=== PATIENT | male | born 1960 | race Caucasian/White ===

== ENCOUNTER 2019-01-13 09:16 | Day surgery (SDC) | payer MEDICAID ==
[2019-01-11 15:24] VITALS: BMI 27.1
[~2019-01-13 09:16] MED LIST: LACTATED RINGERS 1,000 ML IV SCH; LIDOCAINE 1% 20 ML VIAL (10MG/ML) FOR IV START INTRADERMA PRN
[2019-01-13 09:56] VITALS: RESP 16; TEMP 97.6
[2019-01-13] MEDS ORDERED: LIDOCAINE 1% INJ 10MG/ML (20 ML MDV) ONE (10:54)
[2019-01-13] MEDS ORDERED: PROPOFOL 10 MG/ML 20 ML VIAL IV ONE (10:54)
--- NOTE | 2019-01-13 11:10 | P.PCN ---
Date of Procedure: 01/13/19 Procedure(s) Performed: BRIEF HISTORY: Patient is a 58-year-old pleasant male, scheduled for an elective colonoscopy as a part of screening for colorectal neoplasia. PROCEDURE PERFORMED: Colonoscopy. PREOPERATIVE DIAGNOSIS: Screening for colon cancer. IV sedation per Anesthesia. PROCEDURE: After informed consent was obtained, the patient, was brought into the endoscopy unit. IV sedation was administered by Anesthesia under continuous monitoring. Digital rectal examination was normal. Initially the Olympus CF-160 flexible video colonoscope was then inserted in the rectum, gradually advanced into the cecum without any difficulty. Careful examination was performed as the scope was gradually being withdrawn. Ileocecal valve and the appendiceal orifice were visualized and appeared normal. Prep was excellent. Mucosa of the cecum, ascending colon, transverse colon, descending colon, sigmoid colon, and rectum appeared normal. Retroflexion was performed in the rectum and no lesions were seen. The patient tolerated the procedure well. IMPRESSION: Normal-appearing colon from rectum to cecum with no evidence of colorectal neoplasia . RECOMMENDATIONS: Findings of this examination were discussed with the patient as well as his family. He was advised to have a repeat screening colonoscopy in 10 years.
[2019-01-13 11:39] VITALS: BP 115/81; PULSE 57
== END 2019-01-13 11:41 | disposition home or self-care (01) ==
LOC: ORWHC2ENDO 09:16
PROVIDERS: ATTEND Internal Medicine Gastroenterology
DX: Z12.11 Encounter for screening for malignant neoplasm of colon (principal); I10 Essential (primary) hypertension; E78.5 Hyperlipidemia, unspecified; Z79.899 Other long term (current) drug therapy
CPT/HCPCS: J2001; J2704; G0121

== ENCOUNTER → 2019-05-24 | Outpatient (CLI) | payer MEDICAID ==
--- NOTE | 2019-05-24 14:28 | XR ---
Bilateral hands HISTORY: Polyarthritis 3 views of each hand submitted. No comparisons There is hypertrophic change present at the carpometacarpal joint of the first digit, small ossific d ensity present at this level lateral to the trapezium is well-corticated and not felt likely to be ac [place] of the left hand. Some subchondral sclerosis also present at the carpometacarpal joint of the fir st digit of the right hand. Some remodeling present at the radiocarpal joints. Joint space loss is pr esent at the metacarpal phalangeal joints of the first, second, third digits bilaterally with some ma rginal spurring, some hypertrophic change present at the distal interphalangeal joints of the third d igit of the left hand, second and third digit right hand. Question some chondrocalcinosis at the inte rphalangeal joint of the first digit, third digit proximal interphalangeal joint of the right hand, p roximal interphalangeal joint of the third digit of the left hand. Some hooklike osteophytes present at the distal third metacarpal of the left hand, second and third metacarpals of the right hand. 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
== END | disposition home or self-care (01) ==
LOC: RADXRMAIN 09:51
PROVIDERS: ATTEND Internal Medicine
DX: M13.0 Polyarthritis, unspecified (principal)

== ENCOUNTER → 2020-08-29 | Outpatient (CLI) | payer MEDICAID ==
--- NOTE | 2020-08-29 09:39 | XR ---
EXAMINATION TYPE: XR chest 2V DATE OF EXAM: 08/29/2020 COMPARISON: NONE HISTORY: Clubbing of fingers, checkup TECHNIQUE: Frontal and lateral views of the chest are obtained. FINDINGS: There is no focal air space opacity, pleural effusion, or pneumothorax seen. The cardiac silhouette size is within normal limits. The osseous structures are intact, there is thoracic spond ylosis. IMPRESSION: No acute cardiopulmonary process.
[2020-08-29 13:46] LABS: C Reactive Protein <0.4 mg/dL (0.0-0.8); Rheumatoid Factor, Qnt 16 IU/mL (0-15)
[2020-08-29 14:31] LABS: Creatine Kinase 442 U/L (35-257)
[2020-08-29 19:58] LABS: Cyclic Citrull Pep IgG Unit <0.5 U/mL; Cyclic Citrullinated Pep IgG NEGATIVE (NEGATIVE)
[2020-08-30 13:30] LABS: Angiotensin-1 Converting Enz. 25 U/L (8-52)
[2020-08-30 14:26] LABS: HLA B27 NEGATIVE
== END | disposition home or self-care (01) ==
LOC: LABWHC1 07:11
PROVIDERS: ATTEND Internal Medicine Rheumatology
DX: M13.0 Polyarthritis, unspecified (principal)
CPT/HCPCS: 36415; 71046; 82164; 82306; 82550; 83520; 84439; 84443; 85652; 86038; 86140; 86200; 86431; 86812

== ENCOUNTER → 2020-11-30 | Outpatient (CLI) | payer MEDICAID ==
[2020-11-30 15:10] LABS: HGB 14.6 g/dL (13.0-17.0); MCH 31.9 pg (27.0-32.0); MCHC 31.7 g/dL (32.0-37.0); MCV 100.4 fL (80.0-97.0); Mean Platelet Volume 10.3 fL (9.5-12.2); Platelet Count 206 X 10*3/uL (140-440); RBC 4.58 X 10*6/uL (4.40-5.60); RDW 13.3 % (11.5-14.5); WBC 5.79 X 10*3/uL (4.50-10.00)
[2020-11-30 17:59] LABS: Cardiolipin Ab IgG Interp NEGATIVE (NEGATIVE); Cardiolipin Ab IgM Interp NEGATIVE (NEGATIVE); Cardiolipin IgA Antibody <2.0 U/mL; Cardiolipin IgM Antibody <1.5 U/mL; Cyclic Citrull Pep IgG Unit <0.5 U/mL; Cyclic Citrullinated Pep IgG NEGATIVE (NEGATIVE)
[2020-12-01 04:35] LABS: Hepatitis A Antibody IgM Non-Reactive (Non-Reactive); Hepatitis B Core IgM Non-Reactive (Non-Reactive); Hepatitis B Surface Antigen Non-Reactive (Non-Reactive); Hepatitis C IgG Antibody Non-Reactive (Non-Reactive)
[2020-12-01 06:13] LABS: Protein, Total 5.8 g/dL (6.2-8.2)
[2020-12-01 06:40] LABS: African American GFR (CKD) 106.5 (60.0-200.0); Albumin 4.2 g/dL (3.80-4.90); Anion Gap 12.1 mmol/L (4.00-12.00); BUN/Creat Ratio 17.78 Ratio (12.00-20.00); Calcium 9.4 mg/dL (8.7-10.3); Carbon Dioxide 22.9 mmol/L (21.6-31.8); Chol/HDL Ratio 2.83; Globulin 2.1 g/dL (1.6-3.3); LDL Cholesterol,Calculated 97.2 mg/dL (0.0-131.0); Non-African American GFR(CKD) 91.9 (60.0-200.0); Total Bilirubin 0.4 mg/dL (0.3-1.2); Total Protein 6.3 g/dL (6.2-8.2); Uric Acid 4.3 mg/dL (3.7-8.7); VLDL Calculation 17.8 mg/dL (5.00-40.00)
[2020-12-01 12:11] LABS: Aldolase 5.5 U/L (1.2-7.6)
[2020-12-01 14:01] LABS: APTT 37 Sec(s) (<43); Dilute Russell Viper Venom 39 Sec(s) (<44)
[2020-12-01 14:26] LABS: C-ANCA <1:20 Titer (<1:20)
[2020-12-04 13:54] LABS: Albumin 3.64 g/dL (3.80-4.90); Gamma Globulin 0.65 g/dL (0.70-1.50)
== END | disposition home or self-care (01) ==
LOC: LABWHC1 07:25
PROVIDERS: ATTEND Internal Medicine
DX: I10 Essential (primary) hypertension (principal); E78.2 Mixed hyperlipidemia; M77.9 Enthesopathy, unspecified; E79.0 Hyperuricemia without signs of inflammatory arthritis and tophaceous disease; M13.0 Polyarthritis, unspecified; L40.9 Psoriasis, unspecified
CPT/HCPCS: 36415; 80053; 80061; 80074; 82085; 82550; 83516; 83520; 84165; 84550; 85027; 85613; 85730; 86038; 86147; 86200; 86255

== ENCOUNTER → 2021-09-13 | Outpatient (CLI) | payer MEDICAID ==
--- NOTE | 2021-09-13 12:31 | XR ---
Left shoulder HISTORY: Pain 3 views of the left shoulder Acromioclavicular joint arthropathy is present. Distal acromion is downturned. Alignment and bone min eralization are maintained. Left lung apex as visualized is normal. There is no fracture or dislocati on. IMPRESSION: Acromioclavicular joint osteoarthritis, correlate for possible shoulder impingement, bebe jimeneser MRI may be of benefit
--- NOTE | 2021-09-13 12:40 | XR ---
Left hand HISTORY: Osteoarthritis, pain 3 views the left hand, correlation to prior exam 05/24/2019 There is no significant interval change. Bone mineralization, joint spaces and alignment show similar appearance. Hypertrophic changes are present at the distal third metacarpal, osteophyte is again see n. Metallic ring on the ring finger is present. Sclerosis and joint space loss, hypertrophic change p resent at the carpometacarpal joint of the first digit. Small ossific densities are again noted in th e periarticular location. Small ossific density present dorsal to the third proximal interphalangeal joint is unchanged. There is spurring at the distal interphalangeal joint of the third digit similar to prior exam. IMPRESSION: Stable findings. Osteoarthritis.
== END | disposition home or self-care (01) ==
LOC: RADXRMAIN 10:31
PROVIDERS: ATTEND Internal Medicine
DX: M19.042 Primary osteoarthritis, left hand (principal); M19.012 Primary osteoarthritis, left shoulder

== ENCOUNTER → 2022-03-08 | Outpatient (CLI) | payer MEDICAID ==
[2022-03-08 10:47] LABS: Basophils # (A) 0.02 X 10*3/uL (0.00-0.10); Basophils % (A) 0.4 %; Eosinophils # (A) 0.27 X 10*3/uL (0.04-0.35); Eosinophils % (A) 5.9 %; HCT 48.1 % (39.6-50.0); HGB 15.5 g/dL (13.0-17.0); Immature Grans, Automated 0.4 %; Lymphocytes % (A) 26.1 %; MCH 31.4 pg (27.0-32.0); MCHC 32.2 g/dL (32.0-37.0); MCV 97.4 fL (80.0-97.0); Monocytes # (A) 0.42 X 10*3/uL (0.20-1.00); Monocytes % (A) 9.2 %; NRBC Per 100 WBC 0 /100 WBCS (0.0-0.0); Neutrophils # (A) 2.66 X 10*3/uL (1.80-7.70); Platelet Count 199 X 10*3/uL (140-440); RBC 4.94 X 10*6/uL (4.40-5.60); RDW 12.9 % (11.5-14.5); WBC 4.59 X 10*3/uL (4.50-10.00)
[2022-03-08 10:57] LABS: Appearance,Urine Clear (Clear); Bilirubin,Urine Negative (Negative); Blood,Urine Negative (Negative); Color,Urine Yellow; Glucose,Urine (UA) Negative (Negative); Ketones,Urine Negative (Negative); Leukocyte Esterase,Urine Negative (Negative); Nitrite,Urine Negative (Negative); Protein,Urine Negative (Negative); Urobilinogen,Urine <2.0 mg/dL (<2.0)
[2022-03-08 12:28] LABS: ALT 31 U/L (10-49); AST 24 U/L (14-35); African American GFR (CKD) 89.8 (60.0-200.0); Albumin 4.5 g/dL (3.8-4.9); Albumin/Globulin Ratio 2.06 (1.60-3.17); Alkaline Phosphatase 90 U/L (41-126); BUN/Creat Ratio 16.41 Ratio (12.00-20.00); Blood Urea Nitrogen 16.9 mg/dL (9.0-27.0); Calcium 9.7 mg/dL (8.7-10.3); Carbon Dioxide 28.2 mmol/L (20.0-27.5); Chloride 104 mmol/L (96-109); Chol/HDL Ratio 2.87 Ratio; Globulin 2.2 g/dL (1.6-3.3); Glucose 104 mg/dL (70-110); LDL Cholesterol,Calculated 95.4 mg/dL (0.0-131.0); Magnesium 2.2 mg/dL (1.5-2.4); Non-African American GFR(CKD) 77.5 (60.0-200.0); Potassium 5.2 mmol/L (3.5-5.5); Sodium 142 mmol/L (135-145); Total Protein 6.6 g/dL (6.2-8.2)
== END | disposition home or self-care (01) ==
LOC: LABWHC1 07:13
PROVIDERS: ATTEND Internal Medicine
DX: I10 Essential (primary) hypertension (principal); E78.2 Mixed hyperlipidemia; N40.1 Benign prostatic hyperplasia with lower urinary tract symptoms; G47.33 Obstructive sleep apnea (adult) (pediatric)
CPT/HCPCS: 36415; 80053; 80061; 81003; 82306; 83036; 83735; 84153; 84439; 84443; 85025

== ENCOUNTER → 2022-04-08 | Outpatient (CLI) | payer MEDICAID ==
--- NOTE | 2022-04-08 14:02 | US ---
EXAMINATION TYPE: US carotid duplex BILAT DATE OF EXAM: 04/08/2022 COMPARISON: NONE CLINICAL HISTORY: I34.0 NONRHEUMATIC MITRAL (VALVE) INSUFFICIENCY. Prior smoker. Hx hypertension, hyp erlipidemia, carotid stenosis per order. TECHNIQUE: Carotid duplex ultrasound examination. Indirect Doppler criteria was utilized. FINDINGS: EXAM MEASUREMENTS: RIGHT: Peak Systolic Velocity (PSV) cm/sec ----- Right CCA: 90.8 ----- Right ICA: 64.2 ----- Right ECA: 121.1 ICA/CCA ratio: 0.7 RIGHT: End Diastole cm/sec ----- Right CCA: 24.8 ----- Right ICA: 25.8 ----- Right ECA: 22.8 LEFT: Peak Systolic Velocity (PSV) cm/sec ----- Left CCA: 76.4 ----- Left ICA: 87.5 ----- Left ECA: 100.4 ICA/CCA ratio: 1.1 LEFT: End Diastole cm/sec ----- Left CCA: 24.1 ----- Left ICA: 32.5 ----- Left ECA: 21.5 VERTEBRALS (direction of flow): Right Vertebral: Antegrade Left Vertebral: Antegrade Rhythm: Normal LIFT MANAGER NOTES: No elevated velocities at this time. Incidental finding: Mixed cystic and solid area seen within the right thyroid lobe: 1.3 x 1.1 x 0.7 c m with echogenic focus. IMPRESSION: 1. No ultrasound evidence of hemodynamically significant carotid arterial system stenosis. 2. Predominantly anechoic cystic lesion within the right thyroid lobe measuring up to 1.3 cm with po ssible small solid component versus artifact. Dedicated thyroid ultrasound is recommended. Criteria for Assigning % of Stenosis / Diameter reduction (Estimation based on the indirect measurements of the internal carotid artery velocities (ICA PSV). 1. Normal (no stenosis)=ICA PSV < 125 cm/s: ratio < 2.0: ICA EDV<40 cm/s. 2. Less than 50% stenosis=ICA PSV < 125 cm/s: ratio < 2.0: ICA EDV<40 cm/s. 3. 50 to 69% stenosis=ICA PSV of 125 to 230 cm/s: ration 2.0 ? 4.0: ICA EDV 40-100 cm/s. 4. Greater than 70% stenosis to near occlusion= ICA PSV > 230 cm/s: ratio > 4.0: ICA EDV > 100 cm/s. 5. Near occlusion= ICA PSV velocities may be low or undetectable: variable ratio and ICA EDV. 6. Total occlusion=unable to detect flow.
== END | disposition home or self-care (01) ==
LOC: RADUSWWP 13:20
PROVIDERS: ATTEND Internal Medicine
DX: I65.23 Occlusion and stenosis of bilateral carotid arteries (principal); I34.0 Nonrheumatic mitral (valve) insufficiency
CPT/HCPCS: 93306; 93880

== ENCOUNTER 2023-05-06 08:33 | Day surgery (SDC) | payer MEDICAID ==
[~2023-05-06 08:33] MED LIST changes: +LIDOCAINE 1% (10MG/ML) FOR IV START INTRADERMA PRN; -LIDOCAINE 1% 20 ML VIAL (10MG/ML) FOR IV START INTRADERMA PRN
[2023-05-06] MEDS ORDERED: LIDOCAINE 1% (10MG/ML) FOR IV START INTRADERMA ONE (09:15)
[2023-05-06] MEDS ORDERED: PROPOFOL 10 MG/ML 20 ML VIAL IV ONE (09:22)
[2023-05-06] MEDS ORDERED: LIDOCAINE 2% (PF) 20 MG/ML 5 ML VIAL ONE (09:22)
[2023-05-06] MEDS ORDERED: fentaNYL (PF) 50 MCG/ML 2 ML AMP ONE (09:22)
[2023-05-06 09:26] VITALS: TEMP 97.4
--- NOTE | 2023-05-06 09:43 | P.PCN ---
Date of Procedure: 05/06/23 Procedure(s) Performed: BRIEF HISTORY: Patient is a 62-year-old, pleasant, white male scheduled for an upper endoscopy as a part of evaluation of months and history of GERD. Presently on Prilosec 20 mg daily and has been doing well. He scheduled for an upper endoscopy to rule out complicated reflux disease. Father was diagnosed with esophageal cancer at age 65.. PROCEDURE PERFORMED: Esophagogastroduodenoscopy with biopsy. PREOPERATIVE DIAGNOSIS: Long-standing history of GERD. IV sedation per anesthesia. PROCEDURE: After informed consent was obtained, the patient was brought into the endoscopy unit. IV sedation was administered by Anesthesia under continuous monitoring. Initially the Olympus GIF-140 video endoscope was inserted into the mouth. Esophagus intubated without any difficulty. It was gradually advanced into the stomach and duodenum and carefully examined. The bulb and the second part of the duodenum appeared normal. The scope at this time was withdrawn to the stomach, adequately insufflated with air, and upon careful examination, mucosa of the antrum, had mild gastritis and biopsies were done from this area. Mucosa of the body, cardia and the fundus appeared normal. The scope was then withdrawn into the esophagus. Small hiatal hernia noted. The GE junction was located at 39 cm from the incisors. There was a short segment of Singh's esophagus extending 3-4 mm proximal to the GE junction which was biopsied. The esophagus appeared normal. There were no erosions or ulcerations seen and the patient tolerated the procedure well. IMPRESSION: 1. Short segment Singh's esophagus status post biopsies. 2. Small hiatal hernia 3 mild antral gastritis.. RECOMMENDATIONS: The findings of this examination were discussed with the patientas well as his family. He was advised to follow with the biopsy results. If the biopsy confirms the presence of Singh's esophagus he can have a repeat upper endoscopy in 3 years. He was advised to continue with omeprazole 20 mg daily and follow antireflux measures.].
[2023-05-06 10:17] VITALS: BP 133/76; PULSE 66; RESP 20
== END 2023-05-06 10:12 | disposition home or self-care (01) ==
LOC: ORWHC2ENDO 08:33
PROVIDERS: ATTEND Internal Medicine Gastroenterology
DX: K29.50 Unspecified chronic gastritis without bleeding (principal); K22.70 Barrett's esophagus without dysplasia; K44.9 Diaphragmatic hernia without obstruction or gangrene; K21.9 Gastro-esophageal reflux disease without esophagitis; I10 Essential (primary) hypertension; E78.5 Hyperlipidemia, unspecified; Z79.899 Other long term (current) drug therapy; Z90.49 Acquired absence of other specified parts of digestive tract; Z80.0 Family history of malignant neoplasm of digestive organs
CPT/HCPCS: 88305; 43239; J3010; J2704; J2001

== ENCOUNTER → 2023-09-01 | Outpatient (CLI) | payer MEDICAID ==
--- NOTE | 2023-09-01 08:47 | US ---
EXAMINATION TYPE: US thyroid st tissue head/neck DATE OF EXAM: 09/01/2023 COMPARISON: NONE CLINICAL INDICATION: Male, 63 years old with history of E04.1 NONTOXIC SINGLE THYROID NODULE; thyroid nodule GLAND SIZE: Right Lobe: 5.4 x 1.8 x 2.1 cm Overall Parenchyma: homogeneous Left Lobe: 5.4 x 1.5 x 1.9 cm Overall Parenchyma: homogeneous Isthmus Thickness: .4 cm NODULES RIGHT: # of nodules measured on right: 1 1. 1.3 X .9 x 1.1 cm, mid , cystic or almost completely cystic, anechoic nodule, which is wider shayna n tall, with smooth margins, without echogenic foci. Prior size: no previous LEFT: # of nodules measured on left: 0 ISTHMUS: # of nodules measured in the isthmus: 0 Bilateral neck scanned, no evidence of lymphadenopathy. IMPRESSION: Benign: No FNA 2017 ACR TI-RADS LEVEL: TR1 *Highest TI-RADS level nodule reported
[2023-09-01 11:35] LABS: Basophils # (A) 0.03 X 10*3/uL (0.00-0.10); Basophils % (A) 0.7 %; Eosinophils # (A) 0.23 X 10*3/uL (0.04-0.35); Eosinophils % (A) 5.3 %; HCT 45.7 % (39.6-50.0); HGB 14.9 g/dL (13.0-17.0); Lymphocytes # (A) 1.31 X 10*3/uL (0.90-5.00); MCHC 32.6 g/dL (32.0-37.0); MCV 95.2 FL (80.0-97.0); Monocytes # (A) 0.49 X 10*3/uL (0.20-1.00); Monocytes % (A) 11.2 %; NRBC Per 100 WBC 0 X 10*3/uL (0.00-0.01); Neutrophils # (A) 2.29 X 10*3/uL (1.80-7.70); Neutrophils % (A) 52.3 %; Platelet Count 201 X 10*3/uL (140-440); RDW 13.2 % (11.5-14.5); WBC 4.37 X 10*3/uL (4.50-10.00)
[2023-09-01 18:04] LABS: Chol/HDL Ratio 2.52 Ratio; Magnesium 1.8 mg/dL (1.5-2.4); Uric Acid 6.8 mg/dL (3.7-8.7); VLDL Calculation 14.26 mg/dL (5.00-40.00)
[2023-09-01 18:05] LABS: ALT 31 U/L (10-49); AST 23 U/L (14-35); Albumin 4.2 g/dL (3.8-4.9); Albumin/Globulin Ratio 1.91 Ratio (1.60-3.17); Alkaline Phosphatase 88 U/L (41-126); BUN/Creat Ratio 14.15 Ratio (12.00-20.00); Blood Urea Nitrogen 18.4 mg/dL (9.0-27.0); Calcium 9.3 mg/dL (8.7-10.3); Carbon Dioxide 27.6 mmol/L (21.6-31.8); Chloride 104 mmol/L (96-109); Globulin 2.2 g/dL (1.6-3.3); Glucose 100 mg/dL (70-110); LDL Cholesterol,Calculated 99.7 mg/dL (0.0-131.0); Potassium 4.5 mmol/L (3.5-5.5); Sodium 142 mmol/L (135-145); Total Bilirubin 0.3 mg/dL (0.3-1.2); Total Protein 6.4 g/dL (6.2-8.2)
--- NOTE | 2023-09-03 14:16 | US ---
EXAMINATION TYPE: US carotid duplex BILAT DATE OF EXAM: 09/01/2023 COMPARISON: NONE CLINICAL INDICATION: Male, 63 years old with history of I65.23 CAROTID STENOSIS; Stenosis TECHNIQUE: Carotid duplex ultrasound examination. Indirect Doppler criteria was utilized. FINDINGS: EXAM MEASUREMENTS: RIGHT: Peak Systolic Velocity (PSV) cm/sec ----- Right CCA: 69.3 ----- Right ICA: 66.1 ----- Right ECA: 80.6 ICA/CCA ratio: 1.0 RIGHT: End Diastole cm/sec ----- Right CCA: 24.1 ----- Right ICA: 24.1 ----- Right ECA: 17.6 LEFT: Peak Systolic Velocity (PSV) cm/sec ----- Left CCA: 62.8 ----- Left ICA: 91.9 ----- Left ECA: 79.0 ICA/CCA ratio: 1.5 LEFT: End Diastole cm/sec ----- Left CCA: 20.8 ----- Left ICA: 38.6 ----- Left ECA: 16.0 VERTEBRALS (direction of flow): Right Vertebral: Antegrade Left Vertebral: Antegrade Rhythm: Normal ASSISTED SALES REPRESENTATIVE NOTES: No significant stenosis seen IMPRESSION: No evidence for hemodynamically significant stenosis. Criteria for Assigning % of Stenosis / Diameter reduction (Estimation based on the indirect measurements of the internal carotid artery velocities (ICA PSV). 1. Normal (no stenosis)=ICA PSV < 125 cm/s: ratio < 2.0: ICA EDV<40 cm/s. 2. Less than 50% stenosis=ICA PSV < 125 cm/s: ratio < 2.0: ICA EDV<40 cm/s. 3. 50 to 69% stenosis=ICA PSV of 125 to 230 cm/s: ration 2.0 ? 4.0: ICA EDV 40-100 cm/s. 4. Greater than 70% stenosis to near occlusion= ICA PSV > 230 cm/s: ratio > 4.0: ICA EDV > 100 cm/s. 5. Near occlusion= ICA PSV velocities may be low or undetectable: variable ratio and ICA EDV. 6. Total occlusion=unable to detect flow.
== END | disposition home or self-care (01) ==
LOC: RADUSWWP 07:03
PROVIDERS: ATTEND Internal Medicine
DX: Z00.00 Encounter for general adult medical examination without abnormal findings (principal); I65.23 Occlusion and stenosis of bilateral carotid arteries; E04.1 Nontoxic single thyroid nodule; N40.1 Benign prostatic hyperplasia with lower urinary tract symptoms; G47.33 Obstructive sleep apnea (adult) (pediatric); E78.2 Mixed hyperlipidemia; M10.9 Gout, unspecified; K21.00 Gastro-esophageal reflux disease with esophagitis, without bleeding; I10 Essential (primary) hypertension
CPT/HCPCS: 36415; 76536; 80053; 80061; 82306; 83036; 83735; 84153; 84443; 84550; 85025; 93880

== ENCOUNTER → 2024-01-26 | Outpatient (CLI) | payer MEDICAID ==
--- NOTE | 2024-01-26 18:26 | CA ---
Transthoracic Echo Report Name: [place] Age: 63 Gender: M : 1960 Exam Date: 01/26/2024 15:41 Exam Location: [facility] Ht (in): 77 Wt (lb): 250 Ordering Physician: Leonel Glover MD Attending/Referring Phys: Leonel Glover MD Card Services Specialist Katy Gunn RDCS Procedure CPT: Indications: I35.1 NONRHEUMATIC AORTIC (VALVE) INSUFFICIENCY Cardiac Hx: Technical Quality: Good Contrast 1: Total Dose (mL): Contrast 2: Total Dose (mL): MEASUREMENTS (Male / Female) Normal Values 2D ECHO LV Diastolic Diameter PLAX 4.2 cm 4.2 - 5.9 / 3.9 - 5.3 cm LV Systolic Diameter PLAX 2.7 cm IVS Diastolic Thickness 1.2 cm 0.6 - 1.0 / 0.6 - 0.9 cm LVPW Diastolic Thickness 1.3 cm 0.6 - 1.0 / 0.6 - 0.9 cm LV Relative Wall Thickness 0.6 RV Internal Dim ED PLAX 3.6 cm LA Systolic Diameter LX 4.0 cm 3.0 - 4.0 / 2.7 - 3.8 cm LV Diastolic Volume MOD BP 120.0 cm??? 67 - 155 / 56 - 104 cm??? LV Systolic Volume MOD BP 48.8 cm??? / 19 - 49 cm??? LV Ejection Fraction MOD BP 59.3 % >= 55 % LV Cardiac Index MOD BP 1679.4 cm???/min???m??? LV Diastolic Volume MOD 4C 129.2 cm??? LV Systolic Volume MOD 4C 54.3 cm??? LV Ejection Fraction MOD 4C 58.0 % LV Cardiac Index MOD 4C 1768.0 cm???/min???m??? LV Diastolic Length 4C 8.8 cm LV Systolic Length 4C 7.4 cm LV Diastolic Volume MOD 2C 105.4 cm??? LV Systolic Volume MOD 2C 43.4 cm??? LV Ejection Fraction MOD 2C 58.8 % LV Cardiac Index MOD 2C 1461.7 cm???/min???m??? LV Diastolic Length 2C 8.4 cm LV Systolic Length 2C 7.0 cm LA Volume 56.8 cm??? 18 - 58 / 22 - 52 cm??? LA Volume Index 22.7 cm???/m??? 16 - 28 cm???/m??? M-MODE Aortic Root Diameter MM 3.4 cm AV Cusp Separation MM 2.2 cm DOPPLER AV Peak Velocity 172.5 cm/s AV Peak Gradient 11.9 mmHg AV Mean Velocity 103.8 cm/s AV Mean Gradient 5.0 mmHg AV Velocity Time Integral 31.6 cm AI Peak Velocity 435.0 cm/s AI Peak Gradient 75.7 mmHg AI Pressure Half Time 661.4 ms MV Area PHT 3.5 cm??? Mitral E Point Velocity 90.8 cm/s Mitral A Point Velocity 83.5 cm/s Mitral E to A Ratio 1.1 MV Deceleration Time 218.6 ms TR Peak Velocity 239.8 cm/s TR Peak Gradient 23.0 mmHg Right Ventricular Systolic Press 27.6 mmHg FINDINGS Left Ventricle Left ventricular ejection fraction is estimated at 55-60 %. Left ventricular cavity size normal. Mildly increased septal wall thickness. Normal left ventricular wall motion. Right Ventricle Mild right ventricular dilatation. Right ventricular systolic pressure within normal limits. Right Atrium Normal right atrial size. No right atrial thrombus or mass seen. Left Atrium Mildly increased left atrial area. No left atrial thrombus or mass present. Mitral Valve Structurally normal mitral valve. No mitral stenosis. No evidence for mitral valve prolapse. Trace to mild mitral regurgitation. Aortic Valve Trileaflet aortic valve. No aortic stenosis. Mild aortic regurgitation. Tricuspid Valve Structurally normal tricuspid valve. Mild tricuspid regurgitation. Pulmonic Valve Structurally normal pulmonic valve. Mild pulmonic regurgitation. Pericardium No pericardial effusion. No pleural effusion. Aorta Normal size aortic root and proximal ascending aorta. CONCLUSIONS LVH with preserved systolic function RV enlargement Mild aortic regurgitation Previewed by: Dr. Wilfred Chong MD (Electronically Signed) Final Date: 26 January 2024 18:26
== END | disposition home or self-care (01) ==
LOC: RADECHMAIN 15:38
PROVIDERS: ATTEND Internal Medicine
DX: I35.1 Nonrheumatic aortic (valve) insufficiency (principal); I51.7 Cardiomegaly
CPT/HCPCS: 93306

== ENCOUNTER → 2024-05-14 | Outpatient (CLI) | payer MEDICAID ==
--- NOTE | 2024-05-14 15:07 | XR ---
EXAMINATION TYPE: XR chest 2V DATE OF EXAM: 05/14/2024 2:17 PM COMPARISON: Chest radiographs from 08/29/2020 CLINICAL INDICATION: Male, 63 years old with history of J20.9 ACUTE BRONCHITIS, UNSPECIFIED; [facility] TECHNIQUE: XR chest 2V Frontal and lateral views of the chest. FINDINGS: Lungs/Pleura: There is no evidence of pleural effusion, focal consolidation, or pneumothorax. Pulmonary vascularity: Unremarkable. Heart/mediastinum: Cardiomediastinal silhouette is unremarkable. Musculoskeletal: No acute osseous pathology. IMPRESSION: No acute cardiopulmonary disease/process. [facility] [place], , 05/14/2024 3:05 PM
== END | disposition home or self-care (01) ==
LOC: RADXRMAIN 14:06
PROVIDERS: ATTEND Internal Medicine
DX: J20.9 Acute bronchitis, unspecified (principal)
CPT/HCPCS: 71046

== ENCOUNTER → 2024-07-13 | Outpatient (CLI) | payer MEDICAID ==
[2024-07-13 20:41] LABS: Basophils # (A) 0.03 X 10*3/uL (0.00-0.10); Basophils % (A) 0.6 %; Eosinophils # (A) 0.16 X 10*3/uL (0.04-0.35); Eosinophils % (A) 2.9 %; HCT 45.4 % (39.6-50.0); HGB 14.8 g/dL (13.0-17.0); Lymphocytes # (A) 1.21 X 10*3/uL (0.90-5.00); Lymphocytes % (A) 22.2 %; MCHC 32.6 g/dL (32.0-37.0); MCV 95.2 FL (80.0-97.0); Mean Platelet Volume 9.9 FL (9.5-12.2); Monocytes # (A) 0.48 X 10*3/uL (0.20-1.00); Monocytes % (A) 8.8 %; NRBC Per 100 WBC 0 X 10*3/uL (0.00-0.01); Neutrophils # (A) 3.56 X 10*3/uL (1.80-7.70); Neutrophils % (A) 65.3 %; Platelet Count 204 X 10*3/uL (140-440); RBC 4.77 X 10*6/uL (4.40-5.60); WBC 5.45 X 10*3/uL (4.50-10.00)
[2024-07-13 20:42] LABS: Appearance,Urine Clear (Clear); Bilirubin,Urine Negative (Negative); Blood,Urine Negative (Negative); Color,Urine Yellow (Yellow); Ketones,Urine Negative (Negative); Nitrite,Urine Negative (Negative); PH, Urine 5.5; Specific Gravity,Urine 1.026 (1.001-1.030); Urobilinogen,Urine 0.2 E.U./DL
[2024-07-13 21:48] LABS: NT-Pro-B-Type Natriuretic Pept <36 pg/mL (0-125)
[2024-07-13 21:54] LABS: Creatine Kinase 426 U/L (35-257)
[2024-07-13 21:55] LABS: ALT 34 U/L (10-49); AST 28 U/L (14-35); Albumin 4.4 g/dL (3.8-4.9); Alkaline Phosphatase 93 U/L (41-126); BUN/Creat Ratio 19.82 Ratio (12.00-20.00); Blood Urea Nitrogen 21.8 mg/dL (9.0-27.0); Calcium 9.3 mg/dL (8.7-10.3); Carbon Dioxide 26.1 mmol/L (21.6-31.8); Chloride 104 mmol/L (96-109); Globulin 2.1 g/dL (1.6-3.3); Glucose 94 mg/dL (70-110); LDL Cholesterol,Calculated 68.8 mg/dL (0.0-131.0); Potassium 4.6 mmol/L (3.5-5.5); Sodium 141 mmol/L (135-145); Total Bilirubin 0.3 mg/dL (0.3-1.2); Total Protein 6.5 g/dL (6.2-8.2)
== END | disposition home or self-care (01) ==
LOC: LABWHC1 10:57
PROVIDERS: ATTEND Internal Medicine
DX: Z00.00 Encounter for general adult medical examination without abnormal findings (principal); N40.1 Benign prostatic hyperplasia with lower urinary tract symptoms; G47.33 Obstructive sleep apnea (adult) (pediatric); N52.9 Male erectile dysfunction, unspecified; E78.2 Mixed hyperlipidemia; I35.1 Nonrheumatic aortic (valve) insufficiency; I10 Essential (primary) hypertension
CPT/HCPCS: 36415; 80053; 80061; 81003; 82306; 82550; 83036; 83880; 84153; 84443; 84550; 85025